=== PATIENT | male | born 1940 | race Asian ===

== ENCOUNTER 2019-10-16 02:57 | Emergency (ER) | payer OTHER ==
[~2019-10-16] VITALS: Ht 152.4 cm; Wt 63.5 kg
--- NOTE | ~2019-10-16 | EMS ---
[facility] [address] [place] [address] EMS Patient Care Report Name: LEONELA BUCHANAN Room #: PRE M.R.#: [id number] Admission: Attend Phys: Discharge: Date of : 40 Report #: [id number] THIS REPORT FOR: //name// Report Transmitted: 10/16/2019 02:18 EMS Care Summary [place], [place]/[facility] Incident [id number] @ 10/16/2019 02:18 Incident [id number] [place] [address] Patient CHANEL GIPSON Male, 79 Years 1940 Patient Address [address] [place] [id number] Chief Complaint ALTERED MENTAL STATUS Disposition Transported No Lights/Cody Dispatch Reason Altered Mental Status Transported To [facility] Narrative ARRIVED ON SCENE ON THE STREET WITH PD FOR A 79 YEAR OLD MALE WITH ALTERED MENTAL STATUS. PD SAW THE PT WALKING IN THE MIDDLE OF THE STREET AND STOPPED TO TALK TO HIM AND HE SEEMED INTOXICATED SO THEY CALLED FOR EMS. PT CONTACT WAS MADE ON THE SIDEWALK. PT WAS ALERT TO PERSON ONLY AND WAS ANSWERING QUESTION SINAPPROPRIALEY. PT ENIED DRUGS OR ALCOHOL AND NO ALCOHOL WAS SMELLED ON THE PT'S BREATH. PT STATED HE HAD NO IDEA WHERE HE WAS BUT HE WAS WALKING FROM [facility] TO HIS HOME IN [place]. PT WAS TRANSPORTED TO THE AMBULNACE FOR FURTHER EVUALUATION. PT WAS HOOKED UP TO THE MONITOR AND HAD AN IV ESTABLISHED. PT WAS TRANSPORTED TO [facility] PER [facility] FAC[facility] WITH NO CHANGES EN ROUTE. PT WAS TAKEN TO ER BED 10 WHERE TRANSPORT REPORT WAS GIVEN TO THE RECEIVING STAFF. ER NURSE SIGNED FOR TRANSFER OF CARE AND EMS WENT BACK INTO SERVICE. [facility] [address] [place] [address] EMS Patient Care Report Name: LEONELA BUCHANAN Room #: PRE ER M.R.#: [id number] Admission: Attend Phys: Discharge: Date of : 40 Report #: [id number] Initial Vitals @02:37P: 97,BP: 213/124, @02:30P: 104,BP: 200/113, @02:28P: 106,R: 20,BP: 197/103,Pain: 0/10,GCS: 14,Glucose: 162,SpO2: 100,Revised Trauma: 12,NC Suspected: false @02:45P: 93,R: 20,BP: 193/114,Pain: 0/10,GCS: 14,SpO2: 98,Revised Trauma: 12,NC Suspected: false Assessments @02:25MENTAL:Confused,Person Oriented,SKIN:No Abnormalities,HEENT:Eyes: Right Pupil: 3-mm,Eyes: Left Pupil: 3-mm,Head/Face: No Abnormalities,Neck/Airway: No Abnormalities,LUNG SOUNDS:General: No Abnormalities,Left Upper: No Abnormalities,Right Upper: No Abnormalities,Left Lower: No Abnormalities,Right Lower: No Abnormalities,ABDOMEN:General: No Abnormalities,Left Upper: No Abnormalities,Right Upper: No Abnormalities,Left Lower: No Abnormalities,Right Lower: No Abnormalities,PELVIS//GI:No Abnormalities,EXTREMITIES:Left Arm: No Abnormalities,Right Arm: No Abnormalities,Left Leg: No Abnormalities,Right Leg: No Abnormalities,PULSE:Radial: 2+ Normal,NEURO:Abnormal Gait, Impression Altered Mental Status Procedures @02:43Saline Lock 5cc (18 ga) Site: Antecubital-RightResponse: UnchangedSucceeded@02:25ALS AssessmentResponse: UnchangedSucceeded@02:40Saline Lock 0cc (18 ga) Site: Antecubital-LeftResponse: UnchangedFailed Timeline 02:18,Call Received 02:18,Dispatch Notified 02:18,Dispatched 02:20,En Route 02:25,On Scene 02:25,At Patient 02:25,ALS Assessment,Response: UnchangedSucceeded, 02:28,BP: 197/103 M,PULSE: 106,RR: 20 R,SPO2: 100 Ox,ETCO2: ,B,PAIN: 0,GCS: 14, 02:30,BP: 200/113 M,PULSE: 104,RR: R,SPO2: Ox,ETCO2: ,BG: ,PAIN: ,GCS: , 02:37,BP: 213/124 M,PULSE: 97,RR: R,SPO2: Ox,ETCO2: ,BG: ,PAIN: ,GCS: , 02:40,Saline Lock 0cc 18 ga Site: Antecubital-Left,Response: UnchangedFailed, 02:43,Saline Lock 5cc 18 ga Site: Antecubital-Right,Response: UnchangedSucceeded, 02:43,Depart Scene 02:45,BP: 193/114 M,PULSE: 93,RR: 20 R,SPO2: 98 Ox,ETCO2: ,BG: ,PAIN: 0,GCS: 14, [facility] [address] [place] [address] EMS Patient Care Report Name: LEONELA BUCHANAN Room #: PRE ER M.R.#: [id number] Admission: Attend Phys: Discharge: Date of : 40 Report #: [id number] 02:48,At Destination 03:04,Call Closed Disclaimer v1.1 Copyright 2020 [employer] This EMS Care Summary contains data elements from the applicable legal record (which may be displayed differently). It is designed to provide pertinent information for the following purposes: continuity of care, clinical quality, and state data reporting. The complete legal record is available to ED staff and administrators of the receiving hospital in [facility]'s Patient Tracker. All data is provided "as is."
[2019-10-16 03:15] LABS: HEMATOCRIT 41.4 % (42.0-52.0); HEMOGLOBIN 13.8 gm/dL (14.0-18.0); MCH 28.4 pg (26.0-34.0); MCHC 33.4 g/dL (28.0-37.0); MCV 85.1 fL (80.0-100.0); RBC 4.87 mil/uL (4.50-6.00); RDW 14.1 % (10.5-14.5); WBC 8.8 thou/uL (4.0-11.0)
[2019-10-16 03:28] LABS: ANION GAP 13 mmol/L (7-16); BUN 37 mg/dL (7-18); CALCIUM 8.7 mg/dL (8.5-10.1); CHLORIDE 103 mmol/L (98-107); CO2 26 mmol/L (21-32); CREATININE 1.2 mg/dL (0.7-1.3); GLUCOSE 127 mg/dL (74-106); POTASSIUM 3.3 mmol/L (3.5-5.1); SODIUM 142 mmol/L (136-145)
[2019-10-16 03:36] LABS: TROPONIN-I <0.06 ng/mL (<0.06)
[2019-10-16 04:37] LABS: URINE BILIRUBIN NEGATIVE (Negative); URINE BLOOD 1+ (Negative); URINE CLARITY CLEAR; URINE COLOR YELLOW; URINE GLUCOSE-RANDOM* NEGATIVE (Negative); URINE KETONES 1+ (Negative); URINE LEUKOCYTES-REFLEX NEGATIVE (Negative); URINE NITRITE-REFLEX NEGATIVE (Negative); URINE PROTEIN (DIPSTICK) TRACE (Negative); URINE SPECIFIC GRAVITY 1.025 (1.005-1.035); URINE UROBILINOGEN 0.2 E.U./dl (0.2-1.0)
[2019-10-16 04:49] LABS: AMP/METHAMP Negative (Negative); BARBITURATES Negative (Negative); BENZODIAZEPINES Negative (Negative); COCAINE Negative (Negative); METHADONE Negative (Negative); OPIATES Negative (Negative); PCP Negative (Negative)
[2019-10-16 04:59] LABS: BACTERIA-REFLEX 1-9 Few /HPF (None Seen); CASTS None Seen /LPF (None Seen); CRYSTALS None Seen /LPF (None Seen); MUCUS 0-3 Light strn/LPF (None Seen); SQUAMOUS 0-3 Few /LPF (0-3); URINE RBC 0-2 Rare /HPF (0-2); URINE WBC-REFLEX 0-5 Rare /HPF (0-5)
[2019-10-16 05:40] VITALS: BP 157/98
--- NOTE | 2019-10-16 10:01 | EKG ---
[facility] [place] [address] ELECTROCARDIOGRAM REPORT Name: CHANEL GIPSON Room #: [facility]#: [id number] Admission: 10/16/19 Attend Phys: Discharge: 10/16/19 Date of : 40 Report #: [id number] THIS REPORT FOR: cc: NO FAMILY PHYSICIAN or PCP NO FAMILY PHYSICIAN or PCP Ab Kevin MD [facility] ~ THIS REPORT FOR: //name// [facility] ED Test Date: 2019-10-16 Test Time: 03:48:46 Pat Name: LEONELA BUCHANAN Department: Room: Gender: [employer]ist: : 1940 Requested By: Ty Martin Order Number: [id number] MD: Ab Kevin Measurements Intervals [place] Rate: 86 P: 17 DC: 155 QRS: 15 QRSD: 98 T: 43 QT: 434 QTc: 519 Interpretive Statements Sinus rhythm Nonspecific ST segment abnormality Prolonged QT interval No previous ECG available for comparison Electronically Signed On 10-16-2019 10:00:05 CDT by Ab Kevin [email or web address] <ELECTRONICALLY SIGNED> By: Ab Kevin MD, [facility] 10/16/19 [id number] 7 Ab Kevin MD, FACC /EPI
== END 2019-10-16 05:40 | disposition home or self-care (01) ==
LOC: ER 02:57
PROVIDERS: Emergency Medicine
DX: R41.0 Disorientation, unspecified (principal)